=== PATIENT | male | born 1980 | race Caucasian/White ===

== ENCOUNTER 2020-08-16 14:31 | Emergency (ER) | payer SELFPAY ==
[~2020-08-16] VITALS: Ht 162.6 cm; Wt 81.6 kg
[2020-08-16 14:36] VITALS: BP 129/79
== END 2020-08-16 15:09 | disposition left against medical advice (07) ==
LOC: MED 14:31
DX: R04.0 Epistaxis (principal); Z53.21 Procedure and treatment not carried out due to patient leaving prior to being seen by health care provider